=== PATIENT | male | born 1990 | race Caucasian/White ===

== ENCOUNTER 2017-09-05 19:33 | Emergency (ER) | payer SELFPAY ==
--- NOTE | 2017-09-05 19:40 | NUR ---
[facility] TO ADMITTING STAFF. HE CHECKED IN AND FOUND OUT PLENTY PATIENT AND HE LEFT.
--- NOTE | 2017-09-05 19:45 | NUR ---
CALLED TO BE TRIAGE AND HE LEFT.PATIENT LEFT WITHOUT BEING SEEN BY DR. RIDLEY. NO FURTHER CARE PROVIDED FOR PATIENT.
== END 2017-09-05 19:45 | disposition left against medical advice (07) ==
LOC: MED 19:33
DX: R31.9 Hematuria, unspecified (principal); Z53.21 Procedure and treatment not carried out due to patient leaving prior to being seen by health care provider